=== PATIENT | male | born 1940 | race Caucasian/White ===

== ENCOUNTER 2021-08-02 18:47 | Inpatient (IN) | payer MEDICAID, MEDICARE, OTHER ==
[~2021-08-02] VITALS: Ht 188 cm; Wt 93.7 kg
[2021-08-02] MEDS ORDERED: SODIUM CHLORIDE 0.9% 2,200 ML IV ONE (19:45)
[2021-08-02 20:07] LABS: EOSINOPHILS % (AUTO) 0 % (1.0-6.0); HEMATOCRIT 22.8 % (41-53); HEMOGLOBIN 7.5 g/dL (13.5-17.5); LYMPHOCYTES # (AUTO) 0.4 K/uL (1.0-4.8); LYMPHOCYTES % (AUTO) 8.9 % (22.0-44.0); MEAN CORPUSCULAR HEMOGLOBIN 26.2 pg (26.0-34.0); MEAN CORPUSCULAR HGB CONC 32.7 G/dL (31.0-37.0); MEAN CORPUSCULAR VOLUME 80 fL (80-100); MONOCYTES # (AUTO) 0.5 K/uL (0.1-1.0); MONOCYTES % (AUTO) 10.6 % (2.0-9.0); NEUTROPHILS # (AUTO) 3.5 K/uL (1.8-7.7); NEUTROPHILS % (AUTO) 80.5 % (40.0-70.0); PLATELET COUNT (AUTO) 169 K/uL (150-450); RED BLOOD CELL COUNT(AUTO) 2.84 MIL/uL (4.50-5.90); RED CELL DISTRIBUTION WIDTH 18.7 % (11.5-14.5)
[2021-08-02 20:24] LABS: COVID AG,FIA SOURCE NASOPHARYNGEAL
[2021-08-02 20:36] LABS: ANION GAP 10 mmol/L (8-16); CALCIUM, TOTAL 8.3 mg/dL (8.8-10.5); CARBON DIOXIDE 24 mmol/L (22-29); CHLORIDE 98 mmol/L (98-107); CREATININE 6.43 mg/dL (0.60-1.30); GLOMERULAR FILTR. RATE CALC 8 mL/min (>60); GLUCOSE,RANDOM 167 mg/dL (70-110); POTASSIUM 4.8 mmol/L (3.5-5.1); SODIUM SERUM 132 mmol/L (136-145); UREA NITROGEN, BLOOD 96 mg/dL (7-18)
[2021-08-02 20:43] LABS: B-TYPE NATRIURETIC PEPTIDE 93 pg/mL (0-100)
[2021-08-02 20:49] LABS: LACTIC ACID 0.6 mmol/L (0.4-2.0)
[2021-08-02 21:01] LABS: ALANINE AMINOTRANSFERASE 710 U/L (12-78); ALBUMIN 1.4 g/dL (3.4-5.0); ALKALINE PHOSPHATASE 273 U/L (46-116); BILIRUBIN,TOTAL 0.9 mg/dL (0.1-1.0); CREATINE KINASE, TOTAL ONLY 146 U/L (39-308); TOTAL PROTEIN, SERUM 7.8 g/dL (6.4-8.2)
[2021-08-02 21:02] LABS: ASPARTATE AMINOTRANSFERASE 1480 U/L (15-37)
[2021-08-02] MEDS ORDERED: ACETAMINOPHEN 325 MG TABLET PO PRN (21:15)
[2021-08-02] MEDS ORDERED: 0.9% SODIUM CHLORIDE 10 ML SYRINGE IVP PRN (21:15)
[2021-08-02] MEDS ORDERED: ONDANSETRON HCL 4 MG/2 ML VIAL IVP PRN ×2 (21:15)
[2021-08-02] MEDS ORDERED: CefTRIAXone 1 GM/DEXTROSE 50 ML IV ONE (21:15)
[2021-08-02 21:24] LABS: INFLUENZA TYPE A NEGATIVE FOR TYPE A (NEGATIVE); INFLUENZA TYPE B NEGATIVE FOR TYPE B (NEGATIVE)
[2021-08-02 21:29] LABS: ACETAMINOPHEN < 2 mcg/mL (10-30)
[2021-08-02] MEDS ORDERED: CHOL-35 PO (21:41)
[2021-08-02] MEDS ORDERED: GABA-529 PO (21:41)
[2021-08-02] MEDS ORDERED: INSLAN SQ (21:41)
[2021-08-02] MEDS ORDERED: BICT1TAB PO (21:41)
[2021-08-02] MEDS ORDERED: FINA1TAB17 PO (21:41)
[2021-08-02] MEDS ORDERED: VANC125C12 PO (21:41)
[2021-08-02] MEDS ORDERED: SULF1TAB42 PO (21:41)
[2021-08-02] MEDS ORDERED: ATOR20TA86 PO (21:41)
[2021-08-02] MEDS ORDERED: SENN-277 PO (21:41)
[2021-08-02] MEDS ORDERED: [UNRECOGNIZED DRUG - OTHER] PO (21:41)
[2021-08-02] MEDS ORDERED: LEVO50CA4 PO (21:41)
[2021-08-02] MEDS ORDERED: DORA100T PO (21:41)
[2021-08-02 21:49] LABS: RETICULOCYTE % (AUTO) 0.6 % (0.5-2.3)
[2021-08-02 21:55] LABS: APPEARANCE,URINE CLOUDY (CLEAR); GLUCOSE, URINE (UA) NEGATIVE (NEGATIVE); KETONES,URINE TRACE mg/dL (NEGATIVE); LEUKOCYTE ESTERASE ,URINE TRACE (NEGATIVE); NITRATE,URINE NEGATIVE (NEGATIVE); OCCULT BLOOD,URINE SMALL (NEGATIVE); PROTEIN,URINE POS 1+ (NEGATIVE); UROBILINOGEN,URINE 0.2 mg/dL (<=1.0)
[2021-08-02] MEDS ORDERED: HALOPERIDOL LACTATE 5 MG/ML VIAL IM ONE ×2 (22:00→23:00)
[2021-08-02 22:11] LABS: BILIRUBIN,URINE PRELIM. POSITIVE (NEGATIVE)
[2021-08-02] MEDS ORDERED: SENNA 187 MG TABLET PO PRN (22:15)
[2021-08-02] MEDS ORDERED: CLOTRIMAZOLE PO (22:18)
[2021-08-02] MEDS ORDERED: XALA2.5OS OU (22:18)
[2021-08-02] MEDS ORDERED: TAMS-1 PO (22:18)
[2021-08-02] MEDS: SODIUM CHLORIDE 0.9% 1,000 ML IV SCH (22:18)
[2021-08-02] MEDS ORDERED: INSNOV SQ (22:18)
[2021-08-02] MEDS ORDERED: BUPR100SR PO (22:18)
[2021-08-02 22:22] LABS: % IRON SATURATION 23.1 % (30-44)
[2021-08-02] MEDS ORDERED: *CLINICAL-MEROPENEM DOSING CLINICAL ONE (22:30)
[2021-08-02] MEDS ORDERED: VANCOMYCIN HCL 1 GM/D5% WATER 200 ML IV PRN (22:45)
[2021-08-02] MEDS ORDERED: VANCOMYCIN HCL 1.5 GM in DEXTROSE 5%-WATER 250 ML IV ONE (23:00)
[2021-08-02 23:26] LABS: RBC,URINE 0-2 /HPF (0-2); WBC,URINE 0-2 /HPF (0-5)
[2021-08-02 23:27] LABS: BACTERIA,URINE Few /HPF (None Seen); SQUAMOUS EPITHELIAL CELL,UR Rare /LPF (None Seen)
[2021-08-03] VITALS (12 sets, daily range): BP systolic 91–115; BP diastolic 43–76
[2021-08-03] MEDS ORDERED: MEROPENEM 500 MG in SODIUM CHLORIDE 0.9% 50 ML IV ONE ×2
[2021-08-03] MEDS ORDERED: ACETAMINOPHEN 650 MG RECTAL SUPPOSITORY PR PRN (01:30)
[2021-08-03] MEDS ORDERED: BISACODYL 10 MG RECTAL RECTAL SUPPOSITORY PR ONE (01:48)
[2021-08-03] MEDS: SODIUM CHLORIDE 0.9% 1,000 ML IV SCH ×5 (02:36→23:54)
[2021-08-03 06:09] LABS: BASOPHILS % (AUTO) 0.5 % (0.0-2.0); EOSINOPHILS % (AUTO) 0.1 % (1.0-6.0); HEMATOCRIT 23.6 % (41-53); HEMOGLOBIN 7.5 g/dL (13.5-17.5); LYMPHOCYTES % (AUTO) 21.2 % (22.0-44.0); MEAN CORPUSCULAR HGB CONC 31.9 G/dL (31.0-37.0); MEAN CORPUSCULAR VOLUME 82 fL (80-100); MONOCYTES # (AUTO) 0.6 K/uL (0.1-1.0); MONOCYTES % (AUTO) 12.5 % (2.0-9.0); NEUTROPHILS # (AUTO) 3.1 K/uL (1.8-7.7); NEUTROPHILS % (AUTO) 65.7 % (40.0-70.0); PLATELET COUNT (AUTO) 133 K/uL (150-450); RED CELL DISTRIBUTION WIDTH 19.3 % (11.5-14.5)
[2021-08-03] MEDS: LEVOTHYROXINE SODIUM 50 MCG TABLET PO SCH (06:30)
[2021-08-03 06:51] LABS: CALCIUM, TOTAL 7.8 mg/dL (8.8-10.5); CREATININE 6.27 mg/dL (0.60-1.30); MAGNESIUM 2.3 mg/dL (1.80-2.40); POTASSIUM 5.4 mmol/L (3.5-5.1)
[2021-08-03] MEDS ORDERED: [UNRECOGNIZED DRUG - OTHER] PO SCH (09:00)
[2021-08-03] MEDS ORDERED: [UNRECOGNIZED DRUG - OTHER] PO SCH (09:00)
[2021-08-03] MEDS ORDERED: [UNRECOGNIZED DRUG - OTHER] PO SCH (09:00)
[2021-08-03] MEDS: NYSTATIN 500,000 UNITS/5 ML SUSPENSION UDCUP PO SCH ×3 (09:16→21:00)
[2021-08-03] MEDS: LATANOPROST 0.005% 2.5 ML OPHTHALMIC SOLUTION OU SCH (09:16)
[2021-08-03] MEDS: VANCOMYCIN HCL 125 MG/2.5 ML SOLUTION ORAL.SYG PO SCH ×4 (09:16→21:20)
[2021-08-03] MEDS: ETHYL ALCOHOL 62% ANTISEPTIC NASAL INHALANT 0.6 ML AMPUL NASAL SCH ×2 (09:16→21:18)
[2021-08-03] MEDS ORDERED: SULF1TAB42 PO (11:15)
[2021-08-03] MEDS ORDERED: CLOT10T PO (11:15)
[2021-08-03] MEDS ORDERED: SENN-277 PO (11:15)
[2021-08-03] MEDS ORDERED: BUPR-93 PO (11:15)
[2021-08-03] MEDS ORDERED: ASPI1CPM21 PO (11:22)
[2021-08-03] MEDS ORDERED: *CLINICAL-MEROPENEM DOSING CLINICAL ONE (12:30)
[2021-08-03] MEDS: MEROPENEM 500 MG in SODIUM CHLORIDE 0.9% 50 ML IV SCH ×2 (13:13→23:55)
[2021-08-03] MEDS: MetroNIDAZOLE 500 MG/NACL 100 ML IV SCH ×2 (13:14→21:18)
[2021-08-03] MEDS ORDERED: [UNRECOGNIZED DRUG - OTHER] SQ PRN (14:30)
[2021-08-03] MEDS ORDERED: SENNA 187 MG TABLET PO PRN (14:30)
[2021-08-03] MEDS ORDERED: CLOTRIMAZOLE 10 MG TROCHE PO SCH (18:00)
[2021-08-03] MEDS ORDERED: GABAPENTIN 100 MG CAPSULE PO SCH (21:00)
[2021-08-03] MEDS ORDERED: ASPIRIN/DIPYRIDAMOLE ER 25/200 MG ER CAPSULE PO SCH (21:00)
[2021-08-03] MEDS ORDERED: INSULIN GLARGINE,HUM.REC.ANLOG 100 UNITS/ML SQ SCH (21:00)
[2021-08-03] MEDS ORDERED: TAMSULOSIN HCL 0.4 MG CAPSULE PO SCH (21:00)
[2021-08-04 00:49] VITALS: BP 141/50
[2021-08-04 04:55] VITALS: BP 113/65
[2021-08-04] MEDS: MetroNIDAZOLE 500 MG/NACL 100 ML IV SCH ×3 (05:43→22:14)
[2021-08-04] MEDS: SODIUM CHLORIDE 0.9% 1,000 ML IV SCH ×3 (06:51→12:16)
[2021-08-04] MEDS: LEVOTHYROXINE SODIUM 50 MCG TABLET PO SCH (06:51)
[2021-08-04 07:38] LABS: CALCIUM, TOTAL 7.5 mg/dL (8.8-10.5); CREATININE 6.88 mg/dL (0.60-1.30); POTASSIUM 4.7 mmol/L (3.5-5.1)
[2021-08-04 07:55] VITALS: BP 106/66
[2021-08-04] MEDS: ETHYL ALCOHOL 62% ANTISEPTIC NASAL INHALANT 0.6 ML AMPUL NASAL SCH ×2 (08:24→20:26)
[2021-08-04] MEDS: LATANOPROST 0.005% 2.5 ML OPHTHALMIC SOLUTION OU SCH (08:24)
[2021-08-04] MEDS: VANCOMYCIN HCL 125 MG/2.5 ML SOLUTION ORAL.SYG PO SCH ×2 (08:35→12:12)
[2021-08-04] MEDS: NYSTATIN 500,000 UNITS/5 ML SUSPENSION UDCUP PO SCH (08:35)
[2021-08-04] MEDS ORDERED: BICTEGRAV/EMTRICIT/TENOFOV ALA 50-200-25 MG TABLET PO SCH (09:00)
[2021-08-04] MEDS ORDERED: ATORVASTATIN CALCIUM 20 MG TABLET PO SCH (09:00)
[2021-08-04] MEDS ORDERED: BuPROPion HCL XL 150 MG ER TABLET PO SCH (09:00)
[2021-08-04] MEDS ORDERED: CHOLECALCIFEROL (VIT D3) 1,000 UNITS [25 MCG] TABLET PO SCH (09:00)
[2021-08-04 11:37] VITALS: BP 101/52
[2021-08-04] MEDS: MEROPENEM 500 MG in SODIUM CHLORIDE 0.9% 50 ML IV SCH (12:16)
[2021-08-04 13:29] LABS: CREATININE,URINE RANDOM 97.1 mg/dL (30.0-125.0)
[2021-08-04] MEDS: CITRIC ACID/SODIUM CITRATE 30 ML SOLUTION UDCUP PO SCH ×2 (14:45→20:26)
[2021-08-04 15:44] VITALS: BP 109/70
[2021-08-04 19:50] VITALS: BP 112/68
[2021-08-04] MEDS: HEPARIN SODIUM,PORCINE 5,000 UNITS/ML VIAL SQ SCH (20:26)
[2021-08-04] MEDS ORDERED: SODIUM CHLORIDE 0.9% 250 ML IV ONE (22:10)
[2021-08-05] VITALS (7 sets, daily range): BP systolic 72–142; BP diastolic 37–107
[2021-08-05] MEDS: MEROPENEM 500 MG in SODIUM CHLORIDE 0.9% 50 ML IV SCH (00:43)
[2021-08-05] MEDS: MetroNIDAZOLE 500 MG/NACL 100 ML IV SCH (05:50)
[2021-08-05] MEDS: LEVOTHYROXINE SODIUM 50 MCG TABLET PO SCH (05:50)
[2021-08-05 06:22] LABS: BASOPHILS % (AUTO) 0.3 % (0.0-2.0); EOSINOPHILS % (AUTO) 0.1 % (1.0-6.0); LYMPHOCYTES # (AUTO) 0.1 K/uL (1.0-4.8); LYMPHOCYTES % (AUTO) 3.6 % (22.0-44.0); MEAN CORPUSCULAR HEMOGLOBIN 26.6 pg (26.0-34.0); MEAN CORPUSCULAR HGB CONC 32.8 G/dL (31.0-37.0); MEAN CORPUSCULAR VOLUME 81 fL (80-100); MONOCYTES # (AUTO) 0.2 K/uL (0.1-1.0); MONOCYTES % (AUTO) 5.8 % (2.0-9.0); NEUTROPHILS # (AUTO) 3.3 K/uL (1.8-7.7); PLATELET COUNT (AUTO) 142 K/uL (150-450); RED BLOOD CELL COUNT(AUTO) 2.58 MIL/uL (4.50-5.90)
[2021-08-05 06:38] LABS: ALBUMIN 1.1 g/dL (3.4-5.0); BILIRUBIN,TOTAL 3.1 mg/dL (0.1-1.0); CALCIUM, TOTAL 7.3 mg/dL (8.8-10.5); CREATININE 7.09 mg/dL (0.60-1.30); POTASSIUM 4.5 mmol/L (3.5-5.1); TOTAL PROTEIN, SERUM 6.6 g/dL (6.4-8.2); VANCOMYCIN,RANDOM 12.5 mcg/mL (25.0-50.0)
[2021-08-05 06:54] LABS: HEMOGLOBIN 6.9 g/dL (13.5-17.5)
[2021-08-05 06:55] LABS: HEMATOCRIT 20.9 % (41-53); NEUTROPHILS % (AUTO) 90.2 % (40.0-70.0)
[2021-08-05] MEDS ORDERED: VANCOMYCIN HCL 1 GM/D5% WATER 200 ML IV ONE (08:00)
[2021-08-05] MEDS: HEPARIN SODIUM,PORCINE 5,000 UNITS/ML VIAL SQ SCH ×2 (08:20→21:00)
[2021-08-05] MEDS: CITRIC ACID/SODIUM CITRATE 30 ML SOLUTION UDCUP PO SCH (08:20)
[2021-08-05] MEDS: LATANOPROST 0.005% 2.5 ML OPHTHALMIC SOLUTION OU SCH (08:25)
[2021-08-05] MEDS: ETHYL ALCOHOL 62% ANTISEPTIC NASAL INHALANT 0.6 ML AMPUL NASAL SCH ×2 (08:25→21:24)
[2021-08-05] MEDS: SODIUM BICARBONATE 150 MEQ in DEXTROSE 5%-WATER 1,000 ML IV SCH (12:00)
[2021-08-06 04:45] VITALS: BP 110/78
[2021-08-06 06:42] LABS: CALCIUM, TOTAL 7.2 mg/dL (8.8-10.5); CREATININE 7.88 mg/dL (0.60-1.30); POTASSIUM 4.3 mmol/L (3.5-5.1)
[2021-08-06] MEDS: SODIUM BICARBONATE 150 MEQ in DEXTROSE 5%-WATER 1,000 ML IV SCH (07:25)
[2021-08-06 07:32] VITALS: BP 101/50
[2021-08-06] MEDS ORDERED: SULFAMETHOX/TRIMETH DS 800-160 MG/TABLET PO SCH (09:00)
[2021-08-06] MEDS: ETHYL ALCOHOL 62% ANTISEPTIC NASAL INHALANT 0.6 ML AMPUL NASAL SCH ×2 (09:20→20:18)
[2021-08-06] MEDS: LATANOPROST 0.005% 2.5 ML OPHTHALMIC SOLUTION OU SCH (09:21)
[2021-08-06] MEDS: HEPARIN SODIUM,PORCINE 5,000 UNITS/ML VIAL SQ SCH ×2 (09:21→20:18)
[2021-08-06 15:22] VITALS: BP 105/39
[2021-08-06 15:48] VITALS: BP 94/58
[2021-08-06 19:30] VITALS: BP 92/46
[2021-08-07] VITALS (8 sets, daily range): BP systolic 52–99; BP diastolic 30–43
[2021-08-07] MEDS: SODIUM BICARBONATE 150 MEQ in DEXTROSE 5%-WATER 1,000 ML IV SCH (01:35)
[2021-08-07 08:06] LABS: HIV 1-2 SCREEN 4TH GEN W/RFLX Reactive (Non Reactive); HIV INTERPRETATION HIV-1 Positive; HIV-1 ANTIBODY(MULTISPOT) Positive (Negative); HIV-2 ANTIBODY(MULTISPOT) Negative (Negative)
[2021-08-07] MEDS: HEPARIN SODIUM,PORCINE 5,000 UNITS/ML VIAL SQ SCH ×2 (09:00→21:00)
[2021-08-07] MEDS: ETHYL ALCOHOL 62% ANTISEPTIC NASAL INHALANT 0.6 ML AMPUL NASAL SCH ×2 (09:00→21:00)
[2021-08-07] MEDS: LATANOPROST 0.005% 2.5 ML OPHTHALMIC SOLUTION OU SCH (09:26)
[2021-08-07] MEDS ORDERED: MORPHINE SULFATE 2 MG/ML SYRINGE IVP PRN (11:00)
[2021-08-08 05:23] VITALS: BP 106/74
[2021-08-08 08:14] VITALS: BP 71/41
[2021-08-08] MEDS: ETHYL ALCOHOL 62% ANTISEPTIC NASAL INHALANT 0.6 ML AMPUL NASAL SCH ×2 (08:24→21:02)
[2021-08-08] MEDS: HEPARIN SODIUM,PORCINE 5,000 UNITS/ML VIAL SQ SCH ×2 (08:25→21:02)
[2021-08-08] MEDS: LATANOPROST 0.005% 2.5 ML OPHTHALMIC SOLUTION OU SCH (08:25)
[2021-08-08 13:31] VITALS: BP 83/44
[2021-08-08 16:06] VITALS: BP 80/42
[2021-08-08] MEDS: LORazepam 2 MG/ML VIAL IVP PRN (16:35)
[2021-08-08 21:09] VITALS: BP 85/59
[2021-08-09 04:54] VITALS: BP 92/50
[2021-08-09] MEDS: LATANOPROST 0.005% 2.5 ML OPHTHALMIC SOLUTION OU SCH (08:35)
[2021-08-09] MEDS: LORazepam 2 MG/ML VIAL IVP PRN (08:53)
[2021-08-09 09:30] VITALS: BP 70/38
[2021-08-09] MEDS ORDERED: MORPHINE SULFATE 2 MG/ML SYRINGE IVP PRN (11:00)
[2021-08-09] MEDS ORDERED: LORazepam 2 MG/ML VIAL IVP PRN (11:00)
[2021-08-09 12:13] VITALS: BP 58/26
[2021-08-10 17:04] LABS: GLUCOSE,POINT OF CARE 129 MG/DL (70-110)
[2021-08-10 17:08] LABS: GLUCOSE,POINT OF CARE 122 MG/DL (70-110)
== END 2021-08-09 13:10 | DRG 314 ==
LOC: EMS 18:49 → ICU 21:02 → 5S 08-03 15:20 → 6N 08-05 17:51
PROVIDERS: ADMIT Internal Medicine; ATTEND Internal Medicine
DX: T80.211A Bloodstream infection due to central venous catheter, initial encounter (principal); A41.2 Sepsis due to unspecified staphylococcus; G92 Toxic encephalopathy; N17.0 Acute kidney failure with tubular necrosis; B20 Human immunodeficiency virus [HIV] disease; A04.72 Enterocolitis due to Clostridium difficile, not specified as recurrent; N39.0 Urinary tract infection, site not specified; C85.90 Non-Hodgkin lymphoma, unspecified, unspecified site; Z16.24 Resistance to multiple antibiotics; D63.1 Anemia in chronic kidney disease; E03.9 Hypothyroidism, unspecified; E11.22 Type 2 diabetes mellitus with diabetic chronic kidney disease; E11.51 Type 2 diabetes mellitus with diabetic peripheral angiopathy without gangrene; E78.5 Hyperlipidemia, unspecified; E86.0 Dehydration; I12.9 Hypertensive chronic kidney disease with stage 1 through stage 4 chronic kidney disease, or unspecified chronic kidney disease; I25.10 Atherosclerotic heart disease of native coronary artery without angina pectoris; N18.9 Chronic kidney disease, unspecified; N40.0 Benign prostatic hyperplasia without lower urinary tract symptoms; Z51.5 Encounter for palliative care; Z66 Do not resuscitate; R74.01 Elevation of levels of liver transaminase levels; R13.10 Dysphagia, unspecified; Z20.822 Contact with and (suspected) exposure to COVID-19; Y82.8 Other medical devices associated with adverse incidents; Z85.71 Personal history of Hodgkin lymphoma; Z86.73 Personal history of transient ischemic attack (TIA), and cerebral infarction without residual deficits; Z92.21 Personal history of antineoplastic chemotherapy; Z87.440 Personal history of urinary (tract) infections; Z99.3 Dependence on wheelchair; Z87.891 Personal history of nicotine dependence; Y92.89 Other specified places as the place of occurrence of the external cause
CPT/HCPCS: 70450; 71045; 74176; 76700; 80048; 80053; 80202; 81001; 82271; 82550; 82570; 82962; 83540; 83550; 83605; 83615; 83735; 83880; 84134; 84145; 84156; 84300; 84484; 84540; 84550; 85025; 85045; 86160; 86361; 86701; 86702; 87040; 87045; 87077; 87081; 87186; 87205; 87389; 87804; 89055; 92610; 93005; 99285; G0378; G0481; J0696; J1630; J1644; J2060; J2185; J2270; J3370; J3490; J7030; J7050; J7060; 36415-L1; 36415-TC; G0480; U0003